=== PATIENT | male | born 1995 | race Caucasian/White ===

== ENCOUNTER 2017-03-03 19:34 | Emergency (ER) | payer OTHER ==
[~2017-03-03] VITALS: Ht 182.9 cm; Wt 65.8 kg
--- NOTE | 2017-03-03 20:00 | NUR ---
DR THORNTON INTO EVAL PATIENT
--- NOTE | 2017-03-03 20:28 | NUR ---
Patient given written and verbal discharge instructions. Patient verbalizes understanding of instructions. Patient is ambulatory with steady gait Patient given list of available shelters in surrounding area as patient requested
[2017-03-03 20:32] VITALS: BP 118/78
== END 2017-03-03 20:33 | disposition home or self-care (01) ==
LOC: ER 19:36
DX: B35.3 Tinea pedis (principal); F17.200 Nicotine dependence, unspecified, uncomplicated; Z59.0 Homelessness
CPT/HCPCS: 99283; A4663